=== PATIENT | male | born 1975 | race Hispanic/Latino ===

== ENCOUNTER 2019-07-09 11:00 | Outpatient (CLI) | payer BC ==
--- NOTE | 2019-07-09 13:55 | Magnetic Resonance Report ---
MRI CERVICAL SPINE 07/09/2019 INDICATION / CLINICAL INFORMATION: SP/OP/MRI/CSPINE/LSPINE/OTHER DORSALGIA. COMPARISON: None available. FINDINGS: GENERAL OBSERVATIONS: Unenhanced MR images of the cervical spine were obtained. Prominent reversal of cervical lordosis is centered at the C5-6 level. Extensive degenerative changes are present here as detailed below. CRAEB-QG-CRDDY ANALYSIS: C7-T1: Unremarkable. C6-7: Moderate diffuse disc bulging associated with moderate central canal narrowing. C5-6: Prominent lobulated central disc protrusion associated with severe stenosis of the central nemo l. There is abnormally increased T2-weighted signal present within the cervical spinal cord over cran iocaudal length of approximately 2.1 cm extending downward from this level, consistent with compressi ve myelomalacia. C4-5: Unremarkable. C3-4: Unremarkable. C2-3: Unremarkable. CRANIO-CERVICAL JUNCTION: Unremarkable. BONE MARROW: Normal PARASPINAL SOFT TISSUES: No significant abnormality. IMPRESSION: Pronounced central disc protrusion at C5-6 associated with severe canal stenosis and abnormal spinal cord signal. Signer Name: Usman Stoddard MD Signed: 07/09/2019 1:50 PM Workstation Name: [id number]
== END 2019-07-09 11:01 | disposition home or self-care (01) ==
LOC: SPVIMAG 11:00
DX: M48.02 Spinal stenosis, cervical region (principal); M50.223 Other cervical disc displacement at C6-C7 level
CPT/HCPCS: 72141

== ENCOUNTER 2019-07-25 11:24 | Outpatient (CLI) | payer BC ==
--- NOTE | 2019-07-25 14:10 | XRay Report ---
Cervical spine-4 views INDICATION: M50.222 OTHER CERVICAL DISC DISPLACEMENT OF C5-C6 LEVEL. COMPARISON: None. IMPRESSION: Mild kyphosis centered at C5/6 with 2 mm of retrolisthesis of C5 on C6 and C6 on C7. The re is an intervertebral body device spanning C5-7 with no gross complication identified. Mild multil evel discogenic DJD is present. No acute osseous or soft tissue abnormality. Signer Name: Kalin Guadarrama MD Signed: 07/25/2019 2:06 PM Workstation Name: [id number]
== END 2019-07-25 11:25 | disposition home or self-care (01) ==
LOC: XRAY 11:24
PROVIDERS: ATTEND Internal Medicine Gastroenterology
DX: M47.812 Spondylosis without myelopathy or radiculopathy, cervical region (principal); M40.292 Other kyphosis, cervical region
CPT/HCPCS: 72050